=== PATIENT | male | born 1980 | race Caucasian/White ===

== ENCOUNTER 2023-03-29 16:21 | Emergency (ER) | payer OTHER, SELFPAY ==
[2023-03-29] VITALS (15 sets, daily range): BP systolic 102–134; BP diastolic 69–107; PULSE 80–92; RESP 15–25; TEMP 36.4; O2SAT 87–96; BMI 36.5
--- NOTE | 2023-03-29 16:36 | ECG_ITS ---
[facility] Test Date: 2023-03-29 Pat Name: SAMY ZENDEJAS Department: Room: - Gender: Male Data Operations Leader: : 1980 Requested By: Order Number: [id number] Reading MD: PERFECTO CA Measurements Intervals [place] Rate: 80 P: 68 NM: 144 QRS: 71 QRSD: 100 T: 57 QT: 382 QTc: 417 Interpretive Statements 1100 Sinus rhythm [address] depression 9150 abnormal ECG No previous ECG available for comparison Electronically Signed On 03-30-2023 7:08:03 EDT by PERFECTO CA
--- NOTE | 2023-03-29 16:36 | XR_ITS ---
[place] [id number] Patient Name: SAMY ZENDEJAS MRN: [id number] date: 1980 Sex: M Assigned Patient Location: ER Current Patient Location: ED.MAIN Accession/Order Number: [id number] Exam Date: 03/29/2023 17:00 Report Date: 03/29/2023 17:27 At the request of: GENESIS ZAZUETA Procedure: XR chest 1V EXAMINATION: XR chest 1V HISTORY: Overdose COMPARISON: Portable chest 11/03/2022 TECHNIQUE: Portable chest FINDINGS: The lung parenchyma is free of consolidation or infiltrate. No pneumothorax or pleural effusion. The cardiac, mediastinal and hilar contours are normal. The visualized osseous structures exhibit no gross abnormality. XR/XR chest 1V IMPRESSION: No acute cardiopulmonary abnormality. Electronically authenticated by: ELIZABETH AMBROSE Date: 03/29/2023 17:27
--- NOTE | 2023-03-29 16:38 | ED_ITS ---
HPI - General Adult General Chief complaint: Overdose Stated complaint: Overdose, Withdrawal Time Seen by Provider: 03/29/23 16:36 Source: patient Mode of arrival: ambulance Limitations: no limitations History of Present Illness HPI narrative: 42 year old male presents to the ED for evaluation due to tremors, diaphoresis. He presented to [facility] today for treatment due to alcohol abuse. He has been drinking heavily for many weeks; typically 1/2 quart per day. Also reports cocaine use today; reports last use was many years ago. He has had seizures in the past with alcohol withdrawal. He was given 25 mg of Librium at 1326 at [facility]. He has been drinking heavily since his mother . He has from his and has been staying with his aunt. He had an argument with his aunt and he has been homeless the past 3 days. Denies CHINCHILLA, dizziness, CP, SOB. Denies abd pain, N/V/D. Denies pain at this time. Reports hx depression, bipolar disorder, PTSD for which he takes prescription medications. He also takes suboxone. Related Data Home Medications Medication Instructions Recorded Confirmed atorvastatin 20 mg tablet 10 mg PO DAILY 03/29/23 03/29/23 buspirone 10 mg tablet 10 mg PO DAILY 03/29/23 03/29/23 doxepin 25 mg capsule 25 mg PO BEDTIME PRN sleep 03/29/23 03/29/23 fluoxetine 20 mg capsule 40 mg PO DAILY 03/29/23 03/29/23 hydroxyzine HCl 50 mg tablet 50 mg PO TID 03/29/23 03/29/23 omeprazole 40 mg capsule,delayed 40 mg PO DAILY 03/29/23 03/29/23 release quetiapine 400 mg tablet 800 mg PO BEDTIME 03/29/23 03/29/23 rosuvastatin 20 mg tablet 20 mg PO DAILY 03/29/23 03/29/23 Allergies Allergy/AdvReac Type Severity Reaction Status Date / Time banana Allergy Severe Hives Verified 03/29/23 16:35 Fish Containing Products Allergy Severe Hives Verified 03/29/23 16:35 guaifenesin [From Robitussin] Allergy Severe Verified 03/29/23 16:35 trazodone Allergy Severe Verified 03/29/23 16:35 Review of Systems ROS Constitutional Reports: fatigue; Denies: fever or chills Ears, nose, mouth, and throat Denies: throat pain or neck pain Cardiovascular Denies: chest pain or palpitations Respiratory Denies: shortness of breath or cough Gastrointestinal Denies: abdominal pain, nausea, vomiting or diarrhea Genitourinary Denies: painful urination Musculoskeletal Reports: back pain (Chronic); Denies: neck pain Integumentary/Breast Denies: rash Neurological Denies: headache, dizziness or confusion [facility] Medical History (Updated 03/29/23 @ 18:04 by Ara Lu) History of depression ?Z86.59 - Personal history of other mental and behavioral disorders (ICD-10) History of posttraumatic stress disorder (PTSD) ?Z86.59 - Personal history of other mental and behavioral disorders (ICD-10) Hx of bipolar disorder ?Z86.59 - Personal history of other mental and behavioral disorders (ICD-10) Hx of borderline personality disorder ?Z86.59 - Personal history of other mental and behavioral disorders (ICD-10) Social History Smoking status: Heavy tobacco smoker Exam Constitutional Vital Signs, click to edit/add: Last Vital Signs Temp 97.6 F 03/29/23 16:23 Pulse 84 03/29/23 18:01 Resp 24 03/29/23 18:01 BP 109/69 03/29/23 18:01 Pulse Ox 90 L 03/29/23 18:01 O2 Del Method Room Air 03/29/23 16:23 Common normals: no apparent distress and oriented x3 Exam limitations: no altered mental status General appearance: cooperative; not diaphoretic Eye Common normals: PERRL, EOMs intact bilaterally, conjunctivae normal and no scleral icterus Neck & C-Spine Common normals: supple Chest Common normals: inspection of chest normal Chest: symmetrical chest wall rise Respiratory Common normals: normal respiratory effort Effort & inspection: able to speak in complete sentences Auscultation: clear to auscultation bilaterally Cardio Common normals: regular rate GI Common normals: soft to palpation and non-tender Neuro Common normals: oriented x3 Speech: speech normal Sensory exam: extremities (Moves extremities.) Course Vital Signs Vital signs: Vital Signs Temperature 97.6 F 03/29/23 16:23 Pulse Rate 83 03/29/23 16:23 Respiratory Rate 20 03/29/23 16:23 Blood Pressure 134/107 H 03/29/23 16:23 Pulse Oximetry 96 03/29/23 16:23 Oxygen Delivery Method Room Air 03/29/23 16:23 Temperature 97.6 F 03/29/23 16:23 Pulse Rate 84 03/29/23 18:01 Respiratory Rate 24 03/29/23 18:01 Blood Pressure 109/69 03/29/23 18:01 Pulse Oximetry 90 L 03/29/23 18:01 Oxygen Delivery Method Room Air 03/29/23 16:23 Medical Decision Making MDM Narrative Medical decision making narrative: The RN spoke with the physician diamond blender at [facility]. The patient is able to be discharged back to the facility when he is medically cleared. The patient reported he was feeling much better. He was able to eat dinner. He did stand and walk to the restroom with a steady gait. He was cleared to return to the [facility] for his treatment. His ethanol level was unremarkable here. He did test positive for cocaine, buprenorphine, barbiturates, and tricyclic antidepressants. He does have an extensive home medication list. Medical Records Medical records reviewed: Yes I reviewed the patient's medical records Lab Data Lab results reviewed: Yes I reviewed the patient's lab results Labs: Lab Results 03/29/23 03/29/23 03/29/23 Range/Units 16:45 16:49 17:54 WBC 8.3 (4.0-11.0) 10^3/uL RBC 4.09 L (4.70-6.10) 10^6/uL Hgb 12.4 L (14.0-18.0) g/dL Hct 36.8 L (42.0-54.0) % MCV 90.0 (80.0-94.0) fL MCH 30.3 (25.9-34.0) pg MCHC 33.7 (29.9-35.2) g/dL RDW 13.3 (11.0-15.0) % Plt Count 362 (150-450) 10^3/uL MPV 9.3 L (9.5-13.5) fL Neut % (Auto) 59.6 (43.0-75.0) % Lymph % (Auto) 27.8 (20.5-60.0) % [place] % (Auto) 7.6 (1.7-12.0) % Eos % (Auto) 3.4 (0.9-7.0) % Baso % (Auto) 0.5 (0.2-2.0) % Neut # (Auto) 5.0 (1.4-6.5) 10^3/uL Lymph # (Auto) 2.3 (1.2-3.8) 10^3/uL [place] # (Auto) 0.6 (0.3-0.8) 10^3/uL Eos # (Auto) 0.3 (0.0-0.7) 10^3/uL Baso # (Auto) 0.0 (0.0-0.1) 10^3/uL Abs Immat Gran (auto) 0.09 H (0.00-0.03) 10^3/uL Imm/Tot Granulo (auto) 1.1 H (0.0-0.5) % Sodium 133 L (136-145) mmol/L Potassium 3.4 L (3.5-5.1) mmol/L Chloride 100 (98-107) mmol/L Carbon Dioxide 27.0 (21.0-32.0) mmol/L Anion Gap 9.4 BUN 16.0 (7.0-18.0) mg/dL Creatinine 0.99 (0.70-1.30) mg/dL Est GFR ( Amer) >60 (>=60) Est GFR (Non-Af Amer) >60 (>=60) BUN/Creatinine Ratio 16.2 Glucose 91 (74-106) mg/dL Calcium 8.5 (8.5-10.1) mg/dL Total Bilirubin 0.5 (0.2-1.0) mg/dL AST 17 (15-37) U/L ALT 22 (16-63) U/L Alkaline Phosphatase 91 (46-116) U/L Total Protein 7.6 (6.4-8.2) g/dL Albumin 3.3 L (3.4-5.0) g/dL Globulin 4.3 g/dL Albumin/Globulin Ratio 0.8 Urine Color Lt. yellow (YELLOW) Urine Clarity Clear (CLEAR) Urine pH 6.0 (5.0-9.0) Ur Specific [place] 1.015 (1.005-1.025) Urine Protein Negative (NEG/TRACE) mg/dL Urine Glucose (UA) Negative (NEGATIVE) mg/dL Urine Ketones Negative (NEGATIVE) mg/dL Urine Occult Blood Negative (NEGATIVE) Urine Nitrite Negative (NEGATIVE) Urine Bilirubin Negative (NEGATIVE) Urine Urobilinogen 0.2 (0.2-1.0) EU/dL Ur Leukocyte Esterase Negative (NEGATIVE) Salicylates 3.2 (<=19.9) mg/dL Urine Opiates Screen Negative (NEGATIVE) Ur Buprenorphine Scrn Positive A (NEGATIVE) Ur Oxycodone Screen Negative (NEGATIVE) Urine Methadone Screen Negative (NEGATIVE) Ur Propoxyphene Screen Negative (NEGATIVE) Acetaminophen <2.0 L (10.0-30.0) ug/mL Ur Barbiturates Screen Positive A (NEGATIVE) U Tricyclic Antidepress Positive A (NEGATIVE) Ur Phencyclidine Scrn Negative (NEGATIVE) Ur Amphetamines Screen Negative (NEGATIVE) U Methamphetamines Scrn Negative (NEGATIVE) U Benzodiazepines Scrn Positive A (NEGATIVE) Urine Cocaine Screen Positive A (NEGATIVE) U Cannabinoids Screen Negative (NEGATIVE) Ethanol Quant <3 mg/dL Imaging Data Chest x-ray: Radiologist's impression: Procedure: XR chest 1V EXAMINATION: XR chest 1V HISTORY: Overdose COMPARISON: Portable chest 11/03/2022 TECHNIQUE: Portable chest FINDINGS: The lung parenchyma is free of consolidation or infiltrate. No pneumothorax or pleural effusion. The cardiac, mediastinal and hilar contours are normal. The visualized osseous structures exhibit no gross abnormality. XR/XR chest 1V IMPRESSION: No acute cardiopulmonary abnormality. Electronically authenticated by: ELIZABETH AMBROSE Date: 03/29/2023 17:27 ECG Data Attestation: ?I have reviewed the pertinent ECG results. (EKG was reviewed by the attending physician. It showed sinus rhythm at a rate of [address] elevation. ) Interpretation: Measurements Intervals [place] Rate: 80 P: 68 ND: 144 QRS: 71 QRSD: 100 T: 57 QT: 382 QTc: 417 Interpretive Statements 1100 Sinus rhythm [address] depression 9150 abnormal ECG No previous ECG available for comparison Discharge Plan Discharge Chief Complaint: Overdose Clinical Impression: Substance abuse, Alcohol withdrawal Patient Disposition: Home, Self-Care Time of Disposition Decision: 18:03 Condition: Good Mode of Transportation: Private Vehicle Prescriptions / Home Meds: No Action quetiapine 400 mg tablet 800 mg PO BEDTIME hydroxyzine HCl 50 mg tablet 50 mg PO TID atorvastatin 20 mg tablet 10 mg PO DAILY fluoxetine 20 mg capsule 40 mg PO DAILY buspirone 10 mg tablet 10 mg PO DAILY rosuvastatin 20 mg tablet 20 mg PO DAILY doxepin 25 mg capsule 25 mg PO BEDTIME PRN (Reason: sleep) omeprazole 40 mg capsule,delayed release(DR/EC) 40 mg PO DAILY Instructions: Alcohol Withdrawal (ED) Stand Alone Forms: Portal Instructions Referrals: Physician,Non-Staff, MD [Primary Care Provider] - 1 week Discharge Date/Time: 03/29/23 18:13
[2023-03-29 16:56] LABS: Basophils Percent Auto 0.5 % (0.2-2.0); Eosinophils Absolute Auto 0.3 10^3/uL (0.0-0.7); Eosinophils Percent Auto 3.4 % (0.9-7.0); Hematocrit 36.8 % (42.0-54.0); Hemoglobin 12.4 g/dL (14.0-18.0); Immature Granulocytes Abs Auto 0.09 10^3/uL (0.00-0.03); Immature Granulocytes Pct Auto 1.1 % (0.0-0.5); Lymphocytes Absolute Auto 2.3 10^3/uL (1.2-3.8); Lymphocytes Percent Auto 27.8 % (20.5-60.0); Mean Corpuscular HGB Conc 33.7 g/dL (29.9-35.2); Mean Corpuscular Hemoglobin 30.3 pg (25.9-34.0); Mean Platelet Volume 9.3 fL (9.5-13.5); Monocytes Absolute Auto 0.6 10^3/uL (0.3-0.8); Monocytes Percent Auto 7.6 % (1.7-12.0); Neutrophils Percent Auto 59.6 % (43.0-75.0); Platelet Count 362 10^3/uL (150-450); Red Blood Count 4.09 10^6/uL (4.70-6.10); Red Cell Distribution Width 13.3 % (11.0-15.0); White Blood Count 8.3 10^3/uL (4.0-11.0)
[2023-03-29 17:14] LABS: Alanine Aminotransferase 22 U/L (16-63); Albumin Globulin Ratio 0.8; Albumin Level 3.3 g/dL (3.4-5.0); Alkaline Phosphatase 91 U/L (46-116); Anion Gap 9.4; Aspartate Amino Transferase 17 U/L (15-37); BUN Creatinine Ratio 16.2; Bilirubin Total 0.5 mg/dL (0.2-1.0); Calcium 8.5 mg/dL (8.5-10.1); Chloride 100 mmol/L (98-107); Estimated GFR (African America >60 (>=60); Estimated GFR (Non-African Ame >60 (>=60); Ethanol <3 mg/dL; Globulin 4.3 g/dL; Glucose 91 mg/dL (74-106); Potassium 3.4 mmol/L (3.5-5.1); Salicylate 3.2 mg/dL (<=19.9); Sodium 133 mmol/L (136-145); Total Protein 7.6 g/dL (6.4-8.2)
[2023-03-29 17:19] LABS: Acetaminophen <2.0 ug/mL (10.0-30.0)
[2023-03-29 17:58] LABS: Bilirubin Urine NEGATIVE (NEGATIVE); Blood Urine NEGATIVE (NEGATIVE); Clarity Urine CLEAR (CLEAR); Color Urine LT. YELLOW (YELLOW); Glucose Urine UA NEGATIVE (NEGATIVE); Ketones Urine NEGATIVE (NEGATIVE); Leukocyte Esterase Urine NEGATIVE (NEGATIVE); Nitrite Urine NEGATIVE (NEGATIVE); Protein Urine NEGATIVE (NEG/TRACE); Specific Gravity Urine 1.015 (1.005-1.025); Urobilinogen Urine 0.2 EU/dL (0.2-1.0)
[2023-03-29 17:59] LABS: Urine Microscopic Indicated NO
[2023-03-29 18:09] LABS: Amphetamine Screen Urine NEGATIVE (NEGATIVE); Barbiturates Screen Urine POSITIVE (NEGATIVE); Benzodiazepines Screen Urine POSITIVE (NEGATIVE); Buprenorphine Screen Urine POSITIVE (NEGATIVE); Cannabinoid Screen Urine NEGATIVE (NEGATIVE); Cocaine Screen Urine POSITIVE (NEGATIVE); Methadone Screen Urine NEGATIVE (NEGATIVE); Methamphetamines Screen Urine NEGATIVE (NEGATIVE); Opiate Screen Urine NEGATIVE (NEGATIVE); Oxycodone Screen Urine NEGATIVE (NEGATIVE); Phencyclidine Screen Urine NEGATIVE (NEGATIVE); Tricyclic Antidepressant Urine POSITIVE (NEGATIVE)
== END 2023-03-29 18:13 | disposition home or self-care (01) ==
PROVIDERS: Nurse Practitioner Family; Emergency Provider Emergency Medicine
DX: F14.10 Cocaine abuse, uncomplicated (principal); F10.139 Alcohol abuse with withdrawal, unspecified; F17.210 Nicotine dependence, cigarettes, uncomplicated; Z59.00 Homelessness unspecified; Z79.899 Other long term (current) drug therapy; F31.9 Bipolar disorder, unspecified; F43.10 Post-traumatic stress disorder, unspecified
CPT/HCPCS: 36415; 71045; 80053; 80179; 80307; 80320; 80329; 81003; 85025; 93005; 99285

== ENCOUNTER 2023-03-31 18:28 | Observation (INO) | payer OTHER, SELFPAY ==
[2023-03-31] VITALS (45 sets, daily range): BP systolic 91–116; BP diastolic 56–80; PULSE 81–102; RESP 13–25; TEMP 36.7–37.1; O2SAT 84–100; BMI 35.9; BMI 40.1
--- NOTE | 2023-03-31 18:34 | XR_ITS ---
The [address] [address] Patient Name: SAMY ZENDEJAS MRN: [id number] date: 1980 Sex: M Assigned Patient Location: ER Current Patient Location: ER Accession/Order Number: [id number] Exam Date: 03/31/2023 19:00 Report Date: 03/31/2023 19:45 At the request of: JOAQUIM CARRERO Procedure: XR pelvis 1-2V EXAM: XR pelvis 1-2V HISTORY: Seizure COMPARISON: None. TECHNIQUE: Single view FINDINGS: No visualized fracture, dislocation, subluxation or osseous lesion. The hip joints, pubic symphysis and sacroiliac joints are unremarkable. XR/XR pelvis 1-2V IMPRESSION: No visualized acute irregularity Electronically authenticated by: ELIZABETH AMBROSE Date: 03/31/2023 19:45
--- NOTE | 2023-03-31 18:34 | XR_ITS ---
[address] [address] Patient Name: SAMY ZENDEJAS MRN: [id number] date: 1980 Sex: M Assigned Patient Location: ER Current Patient Location: ER Accession/Order Number: [id number] Exam Date: 03/31/2023 19:00 Report Date: 03/31/2023 19:44 At the request of: JOAQUIM CARRERO Procedure: XR chest 1V EXAMINATION: XR chest 1V HISTORY: Seizure COMPARISON: Chest x-ray 03/29/2023 TECHNIQUE: Portable chest FINDINGS: The lung parenchyma is free of consolidation or infiltrate. No pneumothorax or pleural effusion. The cardiac, mediastinal and hilar contours are normal. The visualized osseous structures exhibit no gross abnormality. XR/XR chest 1V IMPRESSION: No acute cardiopulmonary abnormality. Electronically authenticated by: ELIZABETH AMBROSE Date: 03/31/2023 19:44
--- NOTE | 2023-03-31 18:34 | CT_ITS ---
The [address] [address] Patient Name: SAMY ZENDEJAS MRN: [id number] date: 1980 Sex: M Assigned Patient Location: ER Current Patient Location: ER Accession/Order Number: [id number] Exam Date: 03/31/2023 19:00 Report Date: 03/31/2023 19:42 At the request of: JOAQUIM CARRERO Procedure: CT cervical spine wo con EXAM: CT cervical spine wo con HISTORY: Seizure COMPARISON: None. TECHNIQUE: Axial CT imaging is performed. Sagittal and coronal reformatted/reconstructed sequences were additionally performed. FINDINGS: Age-indeterminate reversal of the normal cervical lordosis centered at C5. Vertebral body heights and alignments exhibit no fracture or listhesis. The dens and lateral masses of C1 are symmetric. Intervertebral disc space narrowing, endplate and uncovertebral changes most pronounced at 5-6. Age-related facet changes. No prevertebral soft tissue edema. The visualized osseous skull base, mastoid air cells, airway and thoracic inlet exhibit no gross visualized irregularity. CT/CT cervical spine wo con IMPRESSION: Age-indeterminate reversal of the normal cervical lordosis centered at C5 Electronically authenticated by: ELIZABETH AMBROSE Date: 03/31/2023 19:42
--- NOTE | 2023-03-31 18:35 | CT_ITS ---
[address] [address] Patient Name: SAMY ZENDEJAS MRN: [id number] date: 1980 Sex: M Assigned Patient Location: ER Current Patient Location: ER Accession/Order Number: [id number] Exam Date: 03/31/2023 19:00 Report Date: 03/31/2023 19:59 At the request of: JOAQUIM CARRERO Procedure: CT head/brain wo con EXAM: CT head/brain wo con HISTORY: Seizure COMPARISON: None. TECHNIQUE: Axial CT scans through the head and cervical spine were obtained without IV contrast administration. Dose reduction techniques were achieved by using: automated exposure control and/or adjustment of mA and /or kV according to patient size and/or use of iterative reconstruction technique. CT BRAIN FINDINGS: There is no evidence of acute intracranial hemorrhage or abnormal extra-axial fluid collection. No mass effect or midline shift is seen. There is no evidence of large acute territorial infarction. There is no hydrocephalus. No definite acute fracture is identified. Soft tissues are unremarkable. The visualized orbits show no abnormal mass. The visualized paranasal sinuses show no air-fluid level. Mastoid air cells are clear. CT/CT head/brain wo con IMPRESSION: No CT evidence of acute intracranial abnormality. CT CERVICAL SPINE FINDINGS: No acute fracture or posttraumatic malalignment is seen. The dens and lateral masses of C1 are symmetric. There is straightening of the normal cervical lordotic curvature. There is mild decreased disc height and mild discovertebral complex at C5-6 level. There are mild marginal spurring at C4-7 levels. Mild facet arthropathy. No significant spinal canal stenosis. Mild neural foraminal narrowing is seen at right C5-6 level. The prevertebral soft tissue space appears normal. Visualized neck shows no adenopathy. Visualized lung apices are clear. IMPRESSION: No visualized acute cervical spine abnormality. Mild cervical spondylosis, as described. Electronically authenticated by: FIONA PAEZ Date: 03/31/2023 19:59
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
[2023-03-31] MEDS: ONDANSETRON PF 4 MG/2 ML VIAL IV (19:20)
[2023-03-31] MEDS: MULTIVIT INFUSN,ADULT 4,VIT K 10 ML, FOLIC ACID 1 MG, THIAMINE HCL 100 MG in DEXTROSE 5... 500 ML IV (19:22)
[2023-03-31 19:26] LABS: Basophils Percent Auto 0.6 % (0.2-2.0); Eosinophils Absolute Auto 0.3 10^3/uL (0.0-0.7); Eosinophils Percent Auto 4.6 % (0.9-7.0); Hematocrit 36.3 % (42.0-54.0); Hemoglobin 11.6 g/dL (14.0-18.0); Immature Granulocytes Abs Auto 0.04 10^3/uL (0.00-0.03); Immature Granulocytes Pct Auto 0.6 % (0.0-0.5); Lymphocytes Absolute Auto 2.4 10^3/uL (1.2-3.8); Lymphocytes Percent Auto 34.2 % (20.5-60.0); Mean Corpuscular Hemoglobin 29.9 pg (25.9-34.0); Mean Corpuscular Volume 93.6 fL (80.0-94.0); Mean Platelet Volume 10.8 fL (9.5-13.5); Monocytes Absolute Auto 0.5 10^3/uL (0.3-0.8); Monocytes Percent Auto 7.3 % (1.7-12.0); Neutrophils Absolute Auto 3.8 10^3/uL (1.4-6.5); Neutrophils Percent Auto 52.7 % (43.0-75.0); Platelet Count 294 10^3/uL (150-450); Red Blood Count 3.88 10^6/uL (4.70-6.10); Red Cell Distribution Width 13.1 % (11.0-15.0); White Blood Count 7.1 10^3/uL (4.0-11.0)
[2023-03-31 19:39] LABS: INR 0.94
[2023-03-31 19:44] LABS: Lactate/Lactic Acid 1.3 mmol/L (0.4-2.0)
[2023-03-31 19:52] LABS: Alanine Aminotransferase 20 U/L (16-63); Albumin Globulin Ratio 0.7; Albumin Level 2.9 g/dL (3.4-5.0); Alkaline Phosphatase 77 U/L (46-116); Anion Gap 9.2; Aspartate Amino Transferase 11 U/L (15-37); BUN Creatinine Ratio 14.9; Bilirubin Total 0.1 mg/dL (0.2-1.0); Carbon Dioxide 28.8 mmol/L (21.0-32.0); Chloride 104 mmol/L (98-107); Estimated GFR (African America >60 (>=60); Estimated GFR (Non-African Ame >60 (>=60); Globulin 3.9 g/dL; Glucose 115 mg/dL (74-106); Sodium 138 mmol/L (136-145); Total Protein 6.8 g/dL (6.4-8.2)
--- NOTE | 2023-03-31 20:07 | PC.NURSE ---
C Collar removed at this time per OK from YANNA
[2023-03-31] MEDS: ACETAMINOPHEN 325 MG TABLET 650 MG PO (20:08)
[2023-03-31 20:09] LABS: Creatine Kinase 133 U/L (39-308); Creatine Kinase MB 0.71 ng/mL (<=3.60); Myoglobin 50 ng/mL (16-96); Troponin I High Sensitivity <4.0 pg/mL (4.0-76.1)
[2023-03-31 20:13] LABS: Ethanol <3 mg/dL
--- NOTE | 2023-03-31 20:59 | ECG_ITS ---
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
[2023-03-31 21:07] LABS: Bilirubin Urine NEGATIVE (NEGATIVE); Blood Urine NEGATIVE (NEGATIVE); Clarity Urine CLEAR (CLEAR); Color Urine LT. YELLOW (YELLOW); Glucose Urine UA NEGATIVE (NEGATIVE); Ketones Urine NEGATIVE (NEGATIVE); Leukocyte Esterase Urine NEGATIVE (NEGATIVE); Nitrite Urine NEGATIVE (NEGATIVE); Protein Urine NEGATIVE (NEG/TRACE); Urobilinogen Urine 0.2 EU/dL (0.2-1.0)
[2023-03-31 21:10] LABS: Urine Microscopic Indicated NO
[2023-03-31 21:17] LABS: Amphetamine Screen Urine NEGATIVE (NEGATIVE); Benzodiazepines Screen Urine POSITIVE (NEGATIVE); Cannabinoid Screen Urine NEGATIVE (NEGATIVE); Cocaine Screen Urine POSITIVE (NEGATIVE); Methadone Screen Urine NEGATIVE (NEGATIVE); Methamphetamines Screen Urine NEGATIVE (NEGATIVE); Opiate Screen Urine NEGATIVE (NEGATIVE); Phencyclidine Screen Urine NEGATIVE (NEGATIVE); Tricyclic Antidepressant Urine POSITIVE (NEGATIVE)
[2023-03-31 21:18] LABS: Barbiturates Screen Urine POSITIVE (NEGATIVE); Buprenorphine Screen Urine POSITIVE (NEGATIVE); Oxycodone Screen Urine NEGATIVE (NEGATIVE)
[2023-03-31] MEDS: LEVETIRACETAM 1,000 MG in 0.9 % SODIUM CHLORIDE 100 ML 440 MG IV (21:46)
--- NOTE | 2023-03-31 22:57 | W.PM.TELEPN ---
Progress Note: Subjective Subjective Interval history: CC: Alcohol withdrawal seizures HPI: This is a 42 years old male with past medical history of alcohol and substance dependence who presented to emergency room with above complaints. Patient been admitted to alcohol rehab on of last week. Last drink was on as well. Patient reports having seizure today. Fallen flat on his face. Trauma work-up negative. It seems patient did aspirated during the event. No fever at present. Had previous admission related to alcohol related seizures. Patient also takes Keppra for seizure prevention. Loaded with Keppra in the emergency room. Exam Narrative Exam Narrative: ROS: 1.General: no fever, chills, not in distress 2.HEENT: no [place], no blurry vision, no swallow problems, no nasal congestion, no sore throat 3.Pulmonary: no cough, SOB, wheezes 4.CVS: no CP, no palpitations, no ELLIOTT, no SOB, no intermittent claudication 5.GI: no nausea, vomiting or diarrhea, no abdominal pain, no constipation, no hematemesis or hematochezia 6.: no renal colic, no hematuria, urinary frequency or urgency 7.Extremities: no edema 8.Neurological: no dizziness, vertigo, double or blurry vision, no no focal weakness, no paresthesia, no swallow or speech problems 9.Musculosceletal: no joint pains, no joint swelling, no back pain 10.Dermatological: no skin rashes, no lesions, no pruritus 11.Hematological: no bleeding, no hx/o clots 12.Endocrinological: no heat/cold intolerance, no hx/o diabetes 13.Psychiatric: no suicidal or homicidal thoughts Physical Exam: Not in distress, pleasant, lucid, cooperative, Head - atraumatic, eyes - pupils equal, round, reactive to light, extra ocular movement intact, MMM Neck - supple, thyroid not enlarged, LN not palpated Lungs - clear to auscultation, no dullness on percussion CVS - heart sounds S1, S2, no additional murmurs gallop, regular rate and rhythm Gastrointestinal?abdomen is soft, non-tender, non-distended, no organomegaly, positive bowel sounds Extremities no clubbing, cyanosis or edema Neurological?cranial nerve II?XII grossly intact, no meningeal signs, no cerebellar signs, no sensory deficit Musculoskeletal - joints, no effusions, ROM preserved Dermatological - the skin dry, warm, no rashes Psychiatric?patient is AAO X3, patient has normal affect Constitutional Vital Signs, click to edit/add: Last Vital Signs Temp 98.8 F 03/31/23 22:02 Pulse 86 03/31/23 22:20 Resp 17 03/31/23 22:10 BP 113/66 03/31/23 22:02 Pulse Ox 91 L 03/31/23 22:10 O2 Del Method Room Air 03/31/23 18:49 Progress Note: Objective Labs Labs: Short CBC 03/31/23 Range/Units 18:42 WBC 7.1 (4.0-11.0) 10^3/uL Hgb 11.6 L (14.0-18.0) g/dL Hct 36.3 L (42.0-54.0) % Plt Count 294 (150-450) 10^3/uL BMP 03/31/23 18:42 Sodium 138 Potassium 4.0 Chloride 104 Carbon Dioxide 28.8 BUN 18.0 Creatinine 1.21 Glucose 115 H Calcium 8.0 L Cardiac Enzymes 03/31/23 Range/Units 18:42 Total Creatine Kinase 133 (39-308) U/L CK-MB (CK-2) 0.71 (<=3.60) ng/mL Liver Function 03/31/23 Range/Units 18:42 Total Bilirubin 0.1 L (0.2-1.0) mg/dL AST 11 L (15-37) U/L ALT 20 (16-63) U/L Alkaline Phosphatase 77 (46-116) U/L Albumin 2.9 L (3.4-5.0) g/dL Urine 03/31/23 Range/Units 20:53 Urine Color Lt. yellow (YELLOW) Urine Clarity Clear (CLEAR) Urine pH 6.0 (5.0-9.0) Ur Specific [place] 1.020 (1.005-1.025) Urine Protein Negative (NEG/TRACE) mg/dL Urine Glucose (UA) Negative (NEGATIVE) mg/dL Progress Note: A&P Assessment and Plan (1) Alcohol withdrawal: Assessment and Plan: ETOH withdrawal - will initiate CIWA protocol utilizing frequient Ativan administration based on scoring - close monitoring of the VSs - will use phenobarbital taper - monitor and replace electrolytes as needed - will start on Thyamin and Folate daily -Suspected aspiration?started on empiric antibiotics and breathing treatments -History of seizure disorder?loaded with Keppra, continue with home dose (2) Substance abuse: Assessment and Plan: As above. Patient is on Suboxone?continue with that Tobacco abuse?continue with nicotine patch (3) High cholesterol: Assessment and Plan: Restarted home dose of statin (4) Hx of bipolar disorder: Assessment and Plan: Continue with bupropion and Seroquel Plan END: As the provider for the telehealth service, I attest that I introduced myself to the patient, provided my credentials, disclosed by location and determined that based on a review of the patient's chart and discussion with members of the patient's treatment team, telemedicine via real-time, 2 way, and interactive audio and video platform is an appropriate and effective means of providing the service. ?The patient and I mutually agree this visit is appropriate for telemedicine. ?[place] ?The encounter took approximately 35 minutes. ?The nurse was present during the entire time and I was able to move the stethoscope in appropriate directions. ?The patient was evaluated at the Hospital ? Portions of this note may be dictated using [employer] voice recognition software. Variances in spelling and vocabulary are possible and unintentional. Not all errors may be caught and/or corrected. Please notify the author if any discrepancies are noted and/or if the meaning of any statement is unclear.? ? Patient verbally consented for treatment via video visit with patient currently located at the [facility] and provider located in [place]. Telemedicine Attestation Telemedicine Attestation I conducted this encounter from [place] [] via secure live, [id number] video conference with the patient, located at [facility] with [alcohol withdrawal]. Prior to the interview, the risks and benefits of telemedicine were discussed with the patient and verbal consent was obtained.
[2023-04-01] VITALS (40 sets, daily range): BP systolic 101–114; BP diastolic 63–70; PULSE 81–94; RESP 14–19; TEMP 36.8–37.1; O2SAT 92
[2023-04-01] MEDS: 0.9 % SODIUM CHLORIDE 1,000 ML 100 ML IV (00:18)
[2023-04-01] MEDS: AMPICILLIN SODIUM/SULBACTAM NA 3 GM in 0.9 % SODIUM CHLORIDE 100 ML IV ×2 (00:19→04:31)
[2023-04-01] MEDS: PHENobarbitaL 32.4 MG TABLET 97.2 MG PO (00:20)
[2023-04-01] MEDS: PHENobarbitaL 32.4 MG TABLET PO (00:20)
[2023-04-01] MEDS: QUETIAPINE FUMARATE 100 MG TABLET 800 MG PO (01:17)
[2023-04-01 04:37] LABS: Basophils Percent Auto 0.5 % (0.2-2.0); Eosinophils Absolute Auto 0.3 10^3/uL (0.0-0.7); Eosinophils Percent Auto 4.2 % (0.9-7.0); Hematocrit 35.5 % (42.0-54.0); Hemoglobin 11.2 g/dL (14.0-18.0); Immature Granulocytes Abs Auto 0.03 10^3/uL (0.00-0.03); Immature Granulocytes Pct Auto 0.5 % (0.0-0.5); Lymphocytes Absolute Auto 2.1 10^3/uL (1.2-3.8); Lymphocytes Percent Auto 32.9 % (20.5-60.0); Mean Corpuscular HGB Conc 31.5 g/dL (29.9-35.2); Mean Corpuscular Hemoglobin 29.5 pg (25.9-34.0); Mean Corpuscular Volume 93.4 fL (80.0-94.0); Mean Platelet Volume 10.2 fL (9.5-13.5); Monocytes Absolute Auto 0.5 10^3/uL (0.3-0.8); Monocytes Percent Auto 7.5 % (1.7-12.0); Neutrophils Absolute Auto 3.5 10^3/uL (1.4-6.5); Neutrophils Percent Auto 54.4 % (43.0-75.0); Platelet Count 295 10^3/uL (150-450); Red Cell Distribution Width 13.2 % (11.0-15.0); White Blood Count 6.4 10^3/uL (4.0-11.0)
[2023-04-01 04:52] LABS: Alanine Aminotransferase 18 U/L (16-63); Albumin Globulin Ratio 0.7; Albumin Level 2.6 g/dL (3.4-5.0); Alkaline Phosphatase 73 U/L (46-116); Anion Gap 9.9; Aspartate Amino Transferase 10 U/L (15-37); BUN Creatinine Ratio 14.4; Bilirubin Total 0.1 mg/dL (0.2-1.0); Calcium 7.6 mg/dL (8.5-10.1); Carbon Dioxide 27.1 mmol/L (21.0-32.0); Chloride 107 mmol/L (98-107); Estimated GFR (African America >60 (>=60); Estimated GFR (Non-African Ame >60 (>=60); Globulin 3.5 g/dL; Glucose 124 mg/dL (74-106); Sodium 140 mmol/L (136-145); Total Protein 6.1 g/dL (6.4-8.2)
[2023-04-01 05:19] LABS: INR 0.96; Prothrombin Time 10.2 sec (9.0-11.6)
[2023-04-01] MEDS: GABAPENTIN 300 MG CAPSULE 600 MG PO (06:07)
[2023-04-01] MEDS: THIAMINE MONONITRATE (VIT B1) 100 MG TABLET PO (08:44)
[2023-04-01] MEDS: BUPROPION HCL 150 MG SR TABLET 12H 300 MG PO (08:44)
[2023-04-01] MEDS: FLUOXETINE HCL 20 MG CAPSULE 40 MG PO (08:44)
[2023-04-01] MEDS: LEVETIRACETAM 250 MG TABLET 750 MG PO (08:45)
[2023-04-01] MEDS: MULTIVITAMIN TABLET 1 TAB PO (08:45)
[2023-04-01] MEDS: OMEPRAZOLE 40 MG CAPSULE.DR PO (08:45)
[2023-04-01] MEDS: PROPRANOLOL HCL 20 MG TABLET 10 MG PO (08:45)
[2023-04-01] MEDS: BUPRENORPHINE HCL/NALOXONE HCL 8-2 MG TABLET SUBL 2 TAB SL (08:46)
[2023-04-01] MEDS: FOLIC ACID 1 MG TABLET PO (08:50)
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
[2023-04-04 11:09] LABS: Levetiracetam (Keppra), S 6.5 ug/mL (10.0-40.0)
== END 2023-04-01 12:48 ==
LOC: ER 20:31 → ICU 22:01
PROVIDERS: Physician Assistant; Admitting Provider Internal Medicine; Emergency Provider Emergency Medicine; Visit Provider Family Medicine
DX: F10.139 Alcohol abuse with withdrawal, unspecified (principal); R56.9 Unspecified convulsions; F31.9 Bipolar disorder, unspecified; E78.00 Pure hypercholesterolemia, unspecified; F19.10 Other psychoactive substance abuse, uncomplicated; F17.210 Nicotine dependence, cigarettes, uncomplicated; Z79.899 Other long term (current) drug therapy; Z79.891 Long term (current) use of opiate analgesic
CPT/HCPCS: 36415; 70450; 71045; 72125; 72170; 80053; 80177; 80307; 80320; 81003; 82550; 82553; 83605; 83735; 83874; 84484; 85025; 85610; 93005; 96365; 96366; 96367; 96375; 99285; G0378; Q3014